=== PATIENT | male | born 1965 | race Asian ===

== ENCOUNTER 2017-10-28 17:54 | Emergency (ER) | payer BC ==
[~2017-10-28] VITALS: Ht 167.6 cm; Wt 81.6 kg
[2017-10-28 17:54] VITALS: BP_SYST 135
[2017-10-28] MEDS ORDERED: NACL 0.9% 1,000 ML IV ONE (18:04)
[2017-10-28] MEDS ORDERED: ASPIRIN 325 MG TABLET PO ONE (18:15)
[2017-10-28] MEDS ORDERED: CLOPIDOGREL BISULFATE 75 MG TABLET PO ONE (18:15)
[2017-10-28 18:26] LABS: BASOPHILS % (AUTO) 0.5 % (0.0-2.0); EOSINOPHILS # (AUTO) 0.1 K/uL (0.0-0.4); EOSINOPHILS % (AUTO) 0.8 % (0.0-4.0); HEMATOCRIT 45.2 % (36-54); HEMOGLOBIN 15.4 g/dL (14.0-18.0); LYMPHOCYTES # (AUTO) 1.7 K/uL (1.0-5.5); LYMPHOCYTES % (AUTO) 23.8 % (20.5-51.5); MEAN CORPUSCULAR HEMOGLOBIN 30 pg (27-31); MEAN CORPUSCULAR HGB CONC 34 % (32-36); MEAN CORPUSCULAR VOLUME 88 fL (79.0-98.0); MONOCYTES # (AUTO) 0.6 K/uL (0.0-1.0); MONOCYTES % (AUTO) 8.3 % (1.7-9.3); NEUTROPHILS # (AUTO) 4.5 K/uL (1.8-7.7); NEUTROPHILS % (AUTO) 66.6 % (40.0-70.0); PLATELET COUNT (AUTO) 278 K/uL (130-430); RED BLOOD CELL COUNT(AUTO) 5.12 MIL/uL (4.2-6.2); RED CELL DISTRIBUTION WIDTH 12.1 % (9.0-15.0); WHITE BLOOD COUNT (AUTO) 6.9 K/uL (4.8-10.8)
[2017-10-28 18:27] LABS: BILIRUBIN,URINE NEGATIVE (NEGATIVE); CLARITY/URINE CLEAR (CLEAR); COLOR,URINE YELLOW (YELLOW); GLUCOSE,URINE NEGATIVE (NEGATIVE); KETONES,URINE NEGATIVE (NEGATIVE); LEUKOCYTE ESTERASE ,URINE NEGATIVE (NEGATIVE); NITRITE, URINE NEGATIVE (NEGATIVE); PROTEIN URINE NEGATIVE (NEGATIVE); UROBILINOGEN,URINE 0.2 (0.2-1.0)
[2017-10-28 18:31] LABS: BLOOD, URINE TRACE (NEGATIVE)
[2017-10-28 18:45] LABS: CALCIUM 9.3 mg/dL (8.4-11.0); CREATININE 0.96 mg/dL (0.55-1.30); POTASSIUM 3.6 mmol/L (3.5-5.1)
[2017-10-28 18:48] LABS: PROTHROMBIN TIME 10.1 SECS (9.5-12.5)
[2017-10-28 18:49] LABS: TOTAL BILIRUBIN 0.3 mg/dL (0.0-1.0)
[2017-10-28] MEDS ORDERED: NITROGLYCERIN 0.4 MG TAB.SUBL SL ONE (18:50)
[2017-10-28 19:33] VITALS: BP_SYST 142
== END 2017-10-28 19:33 | disposition home or self-care (01) ==
LOC: SED 17:54
DX: R07.89 Other chest pain (principal); M54.5 Low back pain
CPT/HCPCS: 36415; 71045; 80053; 81003; 82150; 82550; 83690; 84484; 85025; 85610; 85730; 96360; 99285; J7030; 93005